=== PATIENT | female | born 1980 | race Caucasian/White ===

== ENCOUNTER 2016-07-10 12:51 | Emergency (ER) | payer MEDICAID ==
[~2016-07-10] VITALS: Ht 167.6 cm; Wt 57.9 kg
[~2016-07-10 12:51] MED LIST: PREN1TAB60
[2016-07-10 12:54] VITALS: BP 117/72
[2016-07-10] MEDS ORDERED: KETOROLAC 30 MG/1 ML ONE (13:43)
[2016-07-10] MEDS ORDERED: IBUPROFEN 200 MG TABLET ONE (13:49)
[2016-07-10] MEDS ORDERED: IBUPROFEN 200 MG TABLET PO ONE (14:00)
[2016-07-10] MEDS ORDERED: KETOROLAC 30 MG/1 ML IM ONE (14:00)
== END 2016-07-10 13:58 | disposition home or self-care (01) ==
LOC: ED 13:56
DX: J02.9 Acute pharyngitis, unspecified (principal)
CPT/HCPCS: 99283

== ENCOUNTER 2016-08-10 18:29 | Emergency (ER) | payer MEDICAID ==
[~2016-08-10] VITALS: Ht 167.6 cm; Wt 59.6 kg
[2016-08-10 18:37] VITALS: BP 119/76
== END 2016-08-10 19:27 | disposition home or self-care (01) ==
LOC: ED 19:21
DX: H92.02 Otalgia, left ear (principal); J02.8 Acute pharyngitis due to other specified organisms
CPT/HCPCS: 99283; J7512

== ENCOUNTER 2016-12-05 09:36 | Emergency (ER) | payer MEDICAID ==
[~2016-12-05] VITALS: Ht 167.6 cm; Wt 59.1 kg
[2016-12-05 09:42] VITALS: BP 107/64
== END 2016-12-05 10:10 | disposition home or self-care (01) ==
LOC: ED 10:03
DX: J03.91 Acute recurrent tonsillitis, unspecified (principal); F17.210 Nicotine dependence, cigarettes, uncomplicated; J03.90 Acute tonsillitis, unspecified
CPT/HCPCS: 99283

== ENCOUNTER 2017-01-19 12:59 | Emergency (ER) | payer MEDICAID ==
[~2017-01-19] VITALS: Ht 167.6 cm; Wt 59.8 kg
[2017-01-19] MEDS ORDERED: HYDROcodone/APAP 5/325 TABLET ONE (13:56)
[2017-01-19] MEDS ORDERED: HYDROcodone/APAP 5/325 TABLET PO ONE (14:00)
[2017-01-19 14:15] VITALS: BP 110/59
== END 2017-01-19 14:16 | disposition home or self-care (01) ==
LOC: ED 14:15
DX: J02.8 Acute pharyngitis due to other specified organisms (principal); Z90.49 Acquired absence of other specified parts of digestive tract
CPT/HCPCS: 99283

== ENCOUNTER 2017-02-01 10:02 | Emergency (ER) | payer MEDICAID ==
[~2017-02-01] VITALS: Ht 167.6 cm; Wt 59.0 kg
[2017-02-01] MEDS ORDERED: KETOROLAC 30 MG/1 ML IM ONE (10:30)
[2017-02-01] MEDS ORDERED: KETOROLAC 30 MG/1 ML ONE (10:33)
[2017-02-01 12:04] VITALS: BP 117/68
== END 2017-02-01 12:07 | disposition home or self-care (01) ==
LOC: ED 11:44
DX: S83.92XA Sprain of unspecified site of left knee, initial encounter (principal); X58.XXXA Exposure to other specified factors, initial encounter; Y93.89 Activity, other specified; Y92.89 Other specified places as the place of occurrence of the external cause; Y99.8 Other external cause status
CPT/HCPCS: 29505; 73564; 96372; 99284; J1885; 29515

== ENCOUNTER 2017-03-10 08:19 | Emergency (ER) | payer MEDICAID ==
[~2017-03-10] VITALS: Ht 167.6 cm; Wt 56.4 kg
[2017-03-10 08:35] VITALS: BP 125/75
[2017-03-10] MEDS ORDERED: KETOROLAC 30 MG/1 ML ONE (09:11)
[2017-03-10] MEDS ORDERED: KETOROLAC 30 MG/1 ML IM ONE (09:30)
== END 2017-03-10 10:32 | disposition home or self-care (01) ==
LOC: ED 10:25
DX: J20.8 Acute bronchitis due to other specified organisms (principal)
CPT/HCPCS: 71020; 96372; 99284; J1885

== ENCOUNTER 2018-05-02 11:51 | Emergency (ER) | payer MEDICAID ==
[~2018-05-02] VITALS: Ht 167.6 cm; Wt 58.6 kg
--- NOTE | 2018-05-02 12:18 | NUR ---
37 Y/O FEMALE BIB AMBULANCE ON LEGAL HOLD FROM [place]. PER EMS, PT NEEDS MEDICAL CLEARANCE. PT IS ON LEGAL HOLD FOR SI. PLANS TO JUMP OFF BUILDING. DENIES HI. PT STATES "I STARTED HEARING THINGS AND SEEING THINGS. I DRINK A LOT. I DRINK ABOUT 12 SHOTS A DAY. WHEN I FEEL LIKE I'M COMING DOWN, I'LL DRINK MORE. I KNOW I SEE THINGS BECAUSE OF THE DRINKING. I NEED TO DETOX. CPS TOOK MY KIDS LAST NIGHT WHEN [facility] W[facility]. MY LAST DRINK WAS THIS MORNING. I WAS IN A HOTEL LAST NIGHT AND I COULDN'T SLEEP. SO I WENT ON MY OWN TO [place] THIS MORNING. THEY BROUGHT ME HERE." VSS. NO C/O N/V/D, TRAUMA, SYNCOPE, CP, SOB. BEDSIDE REPORT TO JHON LAZARO.
--- NOTE | 2018-05-02 12:22 | NUR ---
REPORT FROM JHON FOSTER. ASSUMED CARE OF PATIENT AT THIS TIME, UA SENT TO LAB, SOCKS PROVIDED TO PATIENT. PERSONAL BELONGINGS PLACED IN BAG IN LOCKED STORAGE. NO ADDITIONAL NEEDS AT THIS TIME, PATIENT CALM/COOPERATIVE. SITTER AT DOORWAY WITH PATIENT IN SIGHT.
[2018-05-02] MEDS ORDERED: SODIUM CHLORIDE FLUSH 10ML SYR IVF ONE (12:30)
[2018-05-02] MEDS ORDERED: SODIUM CHLORIDE 0.9% 1,000ML IVBOLUS ONE (12:30)
[2018-05-02] MEDS ORDERED: THIAMINE 100 MG in SODIUM CHLORIDE 0.9% 50 ML IVPB ONE (12:30)
[2018-05-02] MEDS ORDERED: LORazepam 2 MG/ML, 1ML IVPush PRN (12:30)
[2018-05-02 12:37] LABS: MICROSCOPIC NOT IND
[2018-05-02 12:37] LABS: BASOPHILS # (AUTO) 0.06 x10^3/uL (0-0.1); BASOPHILS % (AUTO) 1 % (0-1); EOSINOPHILS # (AUTO) 0.15 x10^3/uL (0-0.4); EOSINOPHILS % (AUTO) 3 % (1-7); LYMPHOCYTES # (AUTO) 1.26 x10^3/uL (1-3.4); LYMPHOCYTES % (AUTO) 25 % (22-44); MD NO; MEAN CORPUSCULAR HEMOGLOBIN 27.7 pg (27.0-34.8); MEAN CORPUSCULAR HGB CONC 33.1 g/dL (32.4-35.8); MEAN CORPUSCULAR VOLUME 83.9 fL (80-100); MEAN PLATELET VOLUME 7.9 fL (7.4-10.4); MONOCYTES # (AUTO) 0.54 x10^3/uL (0.2-0.8); MONOCYTES % (AUTO) 11 % (2-9); NEUTROPHILS # (AUTO) 3.08 x10^3/uL (1.8-6.8); NEUTROPHILS % (AUTO) 61 % (42-75); PLATELET COUNT 278 x10^3/uL (130-400); RED BLOOD COUNT 3.75 x10^6/uL (3.82-5.3); RED CELL DISTRIBUTION WIDTH 19.3 % (9.6-15.2)
[2018-05-02 12:39] LABS: CULTURE INDICATED? NO
[2018-05-02] MEDS ORDERED: LORazepam 2 MG/ML, 1ML ONE (12:43)
[2018-05-02 12:46] LABS: ALANINE AMINOTRANSFERASE 39 U/L (12-78); ANION GAP 8 mmol/L (5-15); CALCIUM 9.1 mg/dL (8.5-10.1); CHLORIDE 104 mmol/L (98-107); CREATININE 0.92 mg/dL (0.55-1.02); SALICYLATE LEVEL 2.6 mg/dL (2.8-20.0)
[2018-05-02 12:48] LABS: ALKALINE PHOSPHATASE 98 U/L (45-117); BILIRUBIN,TOTAL 0.7 mg/dL (0.2-1.0); TOTAL PROTEIN 7.6 g/dL (6.4-8.2)
[2018-05-02 12:49] LABS: AMPHETAMINE SCREEN, URINE Negative (Negative); BARBITURATE SCREEN, URINE Negative (Negative); BENZODIAZEPINE SCREEN, URINE Negative (Negative); CANNABINOID SCREEN, URINE Negative (Negative); COCAINE SCREEN, URINE Negative (Negative); METHADONE SCREEN, URINE Negative (Negative); OPIATE SCREEN, URINE Negative (Negative)
[2018-05-02 12:49] LABS: ACETAMINOPHEN < 2 mcg/mL (10-30)
[2018-05-02] MEDS ORDERED: CHLORDIAZEPOXIDE 25 MG CAPSULE PO ONE (14:00)
--- NOTE | 2018-05-02 14:28 | NUR ---
PATIENT TO CT VIA DMITRY BENITO.
--- NOTE | 2018-05-02 15:50 | NUR ---
TASK RN: PT RESTING ON [employer]. ALL SAFETY MEASURES OBTAINED. PT GIVEN MORE CUPS OF ICE. SITTER AT DOORWAY. PT WITHIN FULL VIEW.
--- NOTE | 2018-05-02 16:29 | NUR ---
PATIENT TO BR TRANSFER BACK TO [place] PER THROUGHPUT, PATIENT SLEEPING COMFORTABLY ON [facility]. VISIBLE CHEST RISE AND FALL. NADN. SITTER AT DOORWAY WITH PATIENT IN SIGHT.
--- NOTE | 2018-05-02 17:21 | NUR ---
TASK RN: RECEIVED BEDSIDE REPORT FROM JHON LAZARO. PT TO BE TRANSFERRED TO [place]. PT RESTING ON [facility]. ALL SAFETY MEASURES OBTAINED. SITTER AT DOORWAY, PT WITHIN FULL VIEW. REPORT TO PRIMARY RNDEBORAH.
--- NOTE | 2018-05-02 17:28 | NUR ---
SPOKE WITH JODI AT [facility], NOTIFIED [facility] OF ETA
[2018-05-02 17:50] VITALS: BP 109/70
--- NOTE | 2018-05-02 18:09 | NUR ---
SPOKE WITH KALEE AT [facility]. KALEE STATES THEY KNOW PT AND OK TO SEND
--- NOTE | 2018-05-02 18:16 | NUR ---
Provided with meal tray.
== END 2018-05-02 18:35 ==
LOC: ED 12:08 → UNDOADMOB 13:26 → EDIP 13:26
DX: F32.9 Major depressive disorder, single episode, unspecified (principal); R45.851 Suicidal ideations; F10.231 Alcohol dependence with withdrawal delirium; F17.200 Nicotine dependence, unspecified, uncomplicated; Y90.0 Blood alcohol level of less than 20 mg/100 ml
CPT/HCPCS: 36415; 70450; 80053; 80307; 80329; 81003; 83735; 84703; 85025; 96361; 96365; 96375; 99285; J2060; J3411; J7030; G0480

== ENCOUNTER 2019-04-03 08:26 | Emergency (ER) | payer MEDICAID ==
[~2019-04-03] VITALS: Ht 167.6 cm; Wt 56.9 kg
[2019-04-03] MEDS ORDERED: LORazepam 2 MG/ML, 1ML IVPush ONE (09:00)
[2019-04-03] MEDS ORDERED: SODIUM CHLORIDE 0.9% 1,000ML IVBOLUS ONE (09:00)
[2019-04-03] MEDS ORDERED: ASPIRIN 81 MG TABLET CHEW PO ONE (09:00)
--- NOTE | 2019-04-03 09:10 | NUR ---
report given to suzy webb.
--- NOTE | 2019-04-03 09:10 | NUR ---
first contact with pt. pt c/o chest pain "my chest feels like everything in there is being squeezed" x 4 days; worse this am; also c/o epigastric "burning" with swallowing; c/o abd "swelling" pt's aox4. resps even and unlabored. all monitors in place. call light within reach. edmd/pa at bedside to evaluate at this time.
--- NOTE | 2019-04-03 09:14 | NUR ---
REPORT FROM FLORA
[2019-04-03] MEDS ORDERED: LORazepam 2 MG/ML, 1ML ONE (09:16)
[2019-04-03] MEDS ORDERED: ASPIRIN 81 MG TABLET CHEW ONE (09:16)
--- NOTE | 2019-04-03 09:26 | NUR ---
MEDICATED PER ORDERS. PT CHEST PAIN 11/23. TEARFUL. VS STABLE. STATES HER CHEST PAIN STARTED LAST NIGHT
[2019-04-03 09:47] LABS: ALANINE AMINOTRANSFERASE 42 U/L (12-78); ALBUMIN 4.2 g/dL (3.4-5.0); ANION GAP 8 mmol/L (5-15); CALCIUM 9.1 mg/dL (8.5-10.1); CHLORIDE 104 mmol/L (98-107); CREATININE 0.97 mg/dL (0.55-1.02); MEAN CORPUSCULAR HEMOGLOBIN 24.4 pg (27.0-34.8); MEAN CORPUSCULAR HGB CONC 31.5 g/dL (32.4-35.8); MEAN CORPUSCULAR VOLUME 77.4 fL (80-100); MEAN PLATELET VOLUME 8.4 fL (7.4-10.4); PLATELET COUNT 200 x10^3/uL (130-400); RED BLOOD COUNT 3.88 x10^6/uL (3.82-5.3); RED CELL DISTRIBUTION WIDTH 22.3 % (9.6-15.2)
[2019-04-03 09:52] LABS: ALKALINE PHOSPHATASE 95 U/L (45-117); BILIRUBIN,TOTAL 0.9 mg/dL (0.2-1.0); TROPONIN I < 0.015 ng/mL (0.000-0.045)
[2019-04-03 10:13] LABS: <PLATELET ESTIMATE> ADEQUATE; <PLT MORPHOLOGY> NORMAL PLT MORPH; MD MORPH REVIEW ONLY
[2019-04-03 10:14] LABS: ANISOCYTOSIS 1+; BASOPHILS # (AUTO) 0.05 x10^3/uL (0-0.1); BASOPHILS % (AUTO) 1 % (0-1); EOSINOPHILS # (AUTO) 0.13 x10^3/uL (0-0.4); EOSINOPHILS % (AUTO) 3 % (1-7); HYPOCHROMIA 1+; LYMPHOCYTES # (AUTO) 1.01 x10^3/uL (1-3.4); LYMPHOCYTES % (AUTO) 21 % (22-44); MICROCYTOSIS 2+; MONOCYTES # (AUTO) 0.45 x10^3/uL (0.2-0.8); MONOCYTES % (AUTO) 9 % (2-9); NEUTROPHILS # (AUTO) 3.26 x10^3/uL (1.8-6.8); NEUTROPHILS % (AUTO) 66 % (42-75)
[2019-04-03] MEDS ORDERED: OMNIPAQUE 350 MG/ML, 100ML BOTTLE ONE (10:21)
--- NOTE | 2019-04-03 10:30 | NUR ---
PT IS RELAXED. STATES HER CHEST PAIN IS BETTER. GIVEN ICE CHIPS. WAITING FOR RESULTS. VS STABLE.
[2019-04-03 11:20] VITALS: BP 130/38
--- NOTE | 2019-04-03 11:24 | NUR ---
PA AT BEDSIDE DISCUSSING POC. WILL BE DC SOON. PT HAS NO CHEST PAIN. NOT ANXIOUS. VS STABLE
--- NOTE | 2019-04-03 11:58 | NUR ---
PT LEFT WITHOUT DC ORDERS
== END 2019-04-03 11:59 | disposition home or self-care (01) ==
LOC: ED 11:05
DX: K29.00 Acute gastritis without bleeding (principal); D64.9 Anemia, unspecified; R07.89 Other chest pain; Z90.89 Acquired absence of other organs
CPT/HCPCS: 36415; 71045; 71275; 80053; 83690; 84484; 84703; 85025; 93005; 96374; 99284; J2060; J7030; Q9967

== ENCOUNTER 2020-04-15 11:08 | Emergency (ER) | payer MEDICAID ==
[~2020-04-15] VITALS: Ht 167.6 cm; Wt 55.7 kg
[2020-04-15] MEDS ORDERED: ONDANSETRON 2MG/ML, 2ML IVPush ONE (12:30)
[2020-04-15] MEDS ORDERED: SODIUM CHLORIDE 0.9% 1,000ML IVBOLUS ONE (12:30)
--- NOTE | 2020-04-15 12:30 | NUR ---
PT WITH C/O SORE THROAT, N/V UNABLE TO EAT DUE TO THIS. GEN MALAISE. PIV INITIATED PT MEDICATED PER JUN. PT TO ALL MONITORS.
[2020-04-15] MEDS ORDERED: ONDANSETRON 2MG/ML, 2ML ONE (12:36)
--- NOTE | 2020-04-15 13:20 | NUR ---
PT PROVIDED WITH BLANKET PER REQUEST, BOLUS COMPLETED, VSS, NO OTHER NEEDS AT THIS TIME
[2020-04-15] MEDS ORDERED: HYDROcodone/APAP 7.5-325MG/15ML UDC PO ONE (13:30)
[2020-04-15] MEDS ORDERED: DEXAMETHASONE 4 MG TABLET PO ONE (13:30)
[2020-04-15] MEDS ORDERED: HYDROcodone/APAP 7.5-325MG/15ML UDC ONE (13:50)
[2020-04-15] MEDS ORDERED: DEXAMETHASONE 4 MG TABLET ONE (13:50)
--- NOTE | 2020-04-15 14:07 | NUR ---
BREAK RN: JS VALDIVIA HAS UPDATED PATIENT. VS STABLE. NO ACUTE DISTRESS NOTED. CALL LIGHT IN PLACE. WILL CONTINUE TO MONITOR WHILE PRIMARY RN IS ON BREAK.
[2020-04-15 14:27] VITALS: BP 128/70
== END 2020-04-15 14:30 | disposition home or self-care (01) ==
LOC: ED 13:26
DX: J02.9 Acute pharyngitis, unspecified (principal); Z20.828 Contact with and (suspected) exposure to other viral communicable diseases; R00.0 Tachycardia, unspecified; R05 Cough; R50.9 Fever, unspecified; M79.10 Myalgia, unspecified site; F17.210 Nicotine dependence, cigarettes, uncomplicated
CPT/HCPCS: 71045; 87081; 87635; 87880; 93005; 96361; 96374; 99285; J2405; J7030

== ENCOUNTER 2020-12-06 10:03 | Emergency (ER) | payer MEDICAID ==
[~2020-12-06] VITALS: Ht 167.6 cm; Wt 64.7 kg
[2020-12-06 10:25] VITALS: BP 91/59
== END 2020-12-06 11:40 | disposition home or self-care (01) ==
LOC: ED 10:58
DX: B34.9 Viral infection, unspecified (principal); R06.02 Shortness of breath; Z20.822 Contact with and (suspected) exposure to COVID-19
CPT/HCPCS: 71045; 99284; U0003; U0005

== ENCOUNTER 2021-01-03 10:54 | Emergency (ER) | payer MEDICAID ==
[~2021-01-03] VITALS: Ht 167.6 cm; Wt 96.5 kg
[2021-01-03 12:04] LABS: BASOPHILS % (AUTO) 1 % (0-1); EOSINOPHILS % (AUTO) 6 % (1-7); LYMPHOCYTES % (AUTO) 23 % (22-44); MEAN CORPUSCULAR HEMOGLOBIN 30.9 pg (27.0-34.8); MEAN CORPUSCULAR HGB CONC 33.9 g/dL (32.4-35.8); MEAN PLATELET VOLUME 9.1 fL (7.4-10.4); MONOCYTES % (AUTO) 7 % (2-9); NEUTROPHILS % (AUTO) 63 % (42-75); PLATELET COUNT 187 x10^3/uL (130-400); RED BLOOD COUNT 4.43 x10^6/uL (3.82-5.3); RED CELL DISTRIBUTION WIDTH 13.3 % (9.6-15.2)
[2021-01-03 12:13] LABS: ALANINE AMINOTRANSFERASE 27 U/L (12-78); ANION GAP 6 mmol/L (5-15); CALCIUM 9.2 mg/dL (8.5-10.1); CHLORIDE 108 mmol/L (98-107); CREATININE 0.76 mg/dL (0.55-1.02)
[2021-01-03 12:17] LABS: ALKALINE PHOSPHATASE 70 U/L (45-117); BILIRUBIN,TOTAL 0.3 mg/dL (0.2-1.0); TOTAL PROTEIN 7.4 g/dL (6.4-8.2); TROPONIN I < 0.015 ng/mL (0.000-0.045)
[2021-01-03] MEDS ORDERED: IBUPROFEN 600 MG TABLET ONE (15:13)
[2021-01-03] MEDS ORDERED: IBUPROFEN 200 MG TABLET PO ONE (15:30)
[2021-01-03 16:00] VITALS: BP 146/93
--- NOTE | 2021-01-03 16:01 | NUR ---
PAIN (ACHES) IMPROVED POST MOTRIN ADMIN. REVIEWED COVID TESTING RESULTS COMMUNICATIONS, QUARANTINE BASICS, SXS TO WATCH FOR TEACH BACK SUCCESSFUL
== END 2021-01-03 16:02 | disposition home or self-care (01) ==
LOC: ED 10:55
DX: J06.9 Acute upper respiratory infection, unspecified (principal); B34.9 Viral infection, unspecified; J00 Acute nasopharyngitis [common cold]; R07.89 Other chest pain; Z20.822 Contact with and (suspected) exposure to COVID-19
CPT/HCPCS: 36415; 71045; 80053; 84484; 85025; 93005; 99285; U0003; U0005